=== PATIENT | male | born 1995 | race Caucasian/White ===

== ENCOUNTER 2018-12-11 23:11 | Emergency (ER) | payer BC, SELFPAY ==
[2018-12-11] MEDS ORDERED: Ondansetron ODT 4 MG TAB ONE (23:38)
[2018-12-12] MEDS ORDERED: Dicyclomine 20 MG TAB ONE (00:24)
--- NOTE | 2018-12-12 08:06 | RAD ---
PORTABLE CHEST 1 VIEW: DATE: 12/11/2018. TIME: 11:28 p.m. HISTORY: Cough, hematemesis. FINDINGS: The heart size is normal. The lungs are expanded without focal areas of consolidation, pneumothorace s, or pleural effusions. IMPRESSION: No radiographic evidence acute cardiopulmonary process. POS: [facility]
== END 2018-12-12 01:28 | disposition home or self-care (01) ==
LOC: ERS 23:11
DX: R11.2 Nausea with vomiting, unspecified (principal); F17.210 Nicotine dependence, cigarettes, uncomplicated
CPT/HCPCS: 71045; 87804; Q0162